=== PATIENT | male | born 1965 | race Two or more races ===

== ENCOUNTER 2017-10-23 01:26 | Emergency (ER) | payer BC ==
[2017-10-23 01:40] VITALS: BP 125/76; PULSE 66; RESP 17; TEMP 98.5; O2SAT 99
--- NOTE | 2017-10-23 02:21 | C.PDOC ---
History Of Present Illness 52 year old male presents to the ER with a complaint of a frontal headache since last night before falling asleep. Patient states he woke up feeling warm, sweaty, with generalized weakness which concerned him and prompted visit. Patient notes his headache has much improved now; denies palpitations, dizziness , SOB, URI symptoms, nausea, or vomiting. Time Seen by Provider: 10/23/17 01:43 Chief Complaint (Nursing): Headache History Per: Patient History/Exam Limitations: no limitations Onset/Duration Of Symptoms: Hrs Current Symptoms Are (Timing): Still Present Preceeding Symptoms: None Associated Symptoms: denies: Photophobia, Blurred Vision, Nausea, Vomiting, Extremity Weakness Recent travel outside of the [place]: No Past Medical History Reviewed: Historical Data, Nursing Documentation, Vital Signs Vital Signs: Last Vital Signs Temp 98.5 F 10/23/17 01:31 Pulse 66 10/23/17 01:31 Resp 17 10/23/17 01:31 BP 125/76 10/23/17 01:31 Pulse Ox 99 10/23/17 04:37 - Medical History PMH: No Chronic Diseases Family History: States: Unknown Family Hx - Social History Hx Alcohol Use: No Hx Substance Use: No Review Of Systems Constitutional: Positive for: Weakness. Negative for: Fever, Chills Respiratory: Negative for: Cough Gastrointestinal: Negative for: Nausea, Vomiting Neurological: Positive for: Headache Physical Exam - Physical Exam Appears: Non-toxic, No Acute Distress Skin: Normal Color, Warm, Dry Head: Atraumatic, Normacephalic Eye(s): bilateral: Normal Inspection, PERRL, EOMI Oral Mucosa: Moist Neck: Normal, Supple Chest: Symmetrical, No Tenderness Cardiovascular: Rhythm Regular Respiratory: Normal Breath Sounds, No Rales, No Rhonchi, No Wheezing Gastrointestinal/Abdominal: Soft, No Tenderness Neurological/Psych: Oriented x3, Normal Speech, Normal Motor, Normal Sensation, Other (No focal deficits) ED Course And Treatment O2 Sat by Pulse Oximetry: 99 (room air) Pulse Ox Interpretation: Normal Progress Note: Patient is resting comfortably in the ER in no acute distress now asymptomatic. Physical exam was negative and accucheck of 108 mg/dl At this point there is no indication for further diagnostic testing at this time. Will discharge home with instuctions to follow up with PMD for further evaluation. Disposition Counseled Patient/Family Regarding: Diagnosis - Disposition Disposition: HOME/ ROUTINE Disposition Time: 02:19 Condition: STABLE Additional Instructions: Increase PO fluids Bed rest Tylenol or advil as needed for pain Return to ER if symptoms worsen Instructions: Viral Syndrome (ED) Forms: [employer] (Pakistani) - Clinical Impression Clinical Impression: Viral illness - PA / [employer] / Resident Statement MD/DO has reviewed & agrees with the documentation as recorded. - Scribe Statement The provider has reviewed the documentation as recorded by the Scribsebas Cardona All medical record entries made by the Joseibsebas were at my direction and personally dictated by me. I have reviewed the chart and agree that the record accurately reflects my personal performance of the history, physical exam, medical decision making, and the department course for this patient. I have also personally directed, reviewed, and agree with the discharge instructions and disposition.
== END 2017-10-23 02:50 | disposition home or self-care (01) ==
LOC: C.ER 01:26
DX: B34.9 Viral infection, unspecified (principal)